=== PATIENT | female | born 1990 | race American Indian/Alaskan Native ===

== ENCOUNTER 2019-04-12 16:09 | Emergency (ER) | payer OTHER ==
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
[2019-04-12 17:17] VITALS: BP 134/70
--- NOTE | 2019-04-12 18:02 | XRay Report ---
. Left tibia-fibula 2views Indication: pain Findings: There is no fracture, subluxation, or other acute radiographic abnormality of the left lower leg. Signer Name: Alexy Kang MD Signed: 04/12/2019 5:58 PM Workstation Name: [id number]
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
== END 2019-04-12 20:18 | disposition home or self-care (01) ==
LOC: ED 16:09
DX: S39.012A Strain of muscle, fascia and tendon of lower back, initial encounter (principal); Z79.899 Other long term (current) drug therapy; V49.49XA Driver injured in collision with other motor vehicles in traffic accident, initial encounter; Y93.89 Activity, other specified; Y92.410 Unspecified street and highway as the place of occurrence of the external cause; Y99.8 Other external cause status